=== PATIENT | female | born 1965 | race Caucasian/White ===

== ENCOUNTER → 2017-07-23 | Outpatient (CLI) | payer SELFPAY ==
[2014-03-15 02:25] VITALS: BP 136/80
--- NOTE | 2017-07-23 11:25 | CT ---
HISTORY: Screening. Cardiac calcium scoring Technique: Multiple axial images of the chest were obtained on a [address] from the aortic arch to the base of the heart with retrospective cardiac gating. Noncontrast evaluation of th e heart was performed for calcium scoring with prospective gating. 3D reconstructions and vessel anal ysis were performed on a vital imaging workstation. Dose reduction techniques including Automated Ex posure Control (AEC) and adjustment of mA and kV were utilized. Findings: A total calcium score of 13 is observed. The score results in mild likelihood of coronary events giv en the age and sex matched cohort analysis. Evaluation of the coronary arterial system demonstrates no significant disease of the left main or le ft circumflex. Mild coronary artery disease is seen within the left anterior descending and right co ronary arteries. Extracardiac findings: No pathologically enlarged lymphadenopathy can be observed. The aortic arch is unremarkable in its a ppearance with normal vascular configuration. No significant pericardial effusion can be identified. The visualized portions of the lung parenchyma are unremarkable. No lytic or blastic lesions can b e identified within the visualized bony thorax. The visualized portions of the abdomen demonstrate n ormal perfusion patterns of the spleen and liver. IMPRESSION: Total calcium score 13 resulting in a mild likelihood of coronary artery events. Reported By:
== END ==
LOC: RAD 08:21
PROVIDERS: ATTEND Nurse Practitioner Family
DX: Z13.6 Encounter for screening for cardiovascular disorders (principal)

== ENCOUNTER 2018-02-28 15:25 | Inpatient (IN) ==
[2018-02-28 18:00] LABS: BASOPHILS % (AUTO) 0.5 % (0.2-1.0); EOSINOPHILS % (AUTO) 0.3 % (0.9-2.9); HEMATOCRIT 41.7 % (36.0-47.0); HEMOGLOBIN 14.6 g/dL (12.0-16.0); LYMPHOCYTES # (AUTO) 1.2 X10^3/uL (1.3-2.9); LYMPHOCYTES % (AUTO) 20.1 % (21.0-51.0); MEAN CORPUSCULAR HEMOGLOBIN 32.3 pg (27.0-34.0); MEAN CORPUSCULAR HGB CONC 35.1 g/dL (33.0-35.0); MEAN PLATELET VOLUME 8.3 fL (7.4-11.0); MONOCYTES # (AUTO) 0.6 x10^3/uL (0.3-0.8); MONOCYTES % (AUTO) 10.2 % (0.0-13.0); NEUTROPHILS # (AUTO) 4.3 x10^3/uL (2.2-4.8); NEUTROPHILS % (AUTO) 68.9 % (42.0-75.0); PLATELET COUNT 237 X10^3/uL (150.0-450.0); RED BLOOD COUNT 4.53 X10^6/uL (3.5-5.4); WHITE BLOOD COUNT 6.2 X10^3/uL (3.6-10.0)
[2018-02-28 18:01] LABS: ALANINE AMINOTRANSFERASE 54 Units/L (12-78); ALBUMIN 3.8 g/dL (3.4-5.0); ALKALINE PHOSPHATASE 65 Units/L (46-116); ASPARTATE AMINO TRANSFERASE 68 Units/L (15-37); BLOOD UREA NITROGEN 7 mg/dL (7-18); CARBON DIOXIDE 30.9 mmol/L (21-32); CHLORIDE 95 mmol/L (98-107); COR NA(FOR HYPERGLY) 136 mmol/L (136-145); CREATININE 0.87 mg/dL (0.55-1.02); SODIUM 136 mmol/L (136-145); TOTAL PROTEIN 7.8 g/dL (6.4-8.2); eGFR NON BLACK RACES > 60 (>60)
[2018-02-28] MEDS ORDERED: K-RIDER 10 MEQ/NS 100 ML 10 MEQ/100 ML BAG IV PRN (18:07)
[2018-02-28] MEDS ORDERED: KLOR-CON PO PRN (18:07)
[2018-02-28] MEDS ORDERED: POTASSIUM CHL 60 MEQ/NS 0.45% 500 ML IV PRN (18:07)
[2018-02-28] MEDS ORDERED: POTASSIUM CHLORIDE LIQ 20 MEQ UDC PO PRN (18:07)
[2018-02-28] MEDS ORDERED: MICRO K EXTEN CAP 10 MEQ PO PRN (18:07)
[2018-02-28] MEDS: K-DUR TAB 20 MEQ PO PRN (18:27)
[2018-02-28] MEDS: PROVENTIL NEB TX 0.083% 2.5MG/ 3ML NEB SCH (18:30)
[2018-02-28] MEDS: NS 1000 ML 1,000 ML IV SCH (18:31)
[2018-02-28] MEDS: ROCEPHIN VIAL 1 GRAM IVP SCH (18:57)
[2018-02-28 19:26] VITALS: BMI 48.5
[2018-02-28 19:28] LABS: APPEARANCE,URINE SLIGHTLY HAZY (CLEAR); BILIRUBIN,URINE 1+ (NEGATIVE); BLOOD/HEMOGLOBIN,URINE 2+ (NEGATIVE); COLOR,URINE AMBER (YELLOW); GLUCOSE, URINE NEGATIVE (NEGATIVE); KETONES,URINE 1+ (NEGATIVE); LEUKOCYTE ESTERASE ,URINE 1+ (NEGATIVE); NITRITES,URINE POSITIVE (NEGATIVE); PROTEIN,URINE 2+ (NEGATIVE); UROBILINOGEN,URINE 2+ (NORMAL)
[2018-02-28 19:33] LABS: BACTERIA,URINE 1+ /HPF (NEGATIVE); SQUAMOUS EPITHELIAL CELL,UR MANY /HPF (NEGATIVE)
[2018-02-28] MEDS: TYLENOL 500 MG TAB EXTRA STRENGTH PO PRN (20:07)
[2018-02-28] MEDS: MAGNESIUM SULFATE 1 GRAM/100 mL PREMIX 2 G/200 ML BAG IV SCH ×2 (20:10→21:34)
[2018-02-28] MEDS: ROBITUSSIN DM PO SCH (20:57)
[2018-02-28] MEDS ORDERED: PREVNAR 13 IM ONE (21:00)
[2018-02-28] MEDS ORDERED: FLUVIRIN IM ONE (21:00)
[2018-02-28] MEDS: POTASSIUM CHL 40 MEQ/NS 0.45% 500 ML IV PRN (22:41)
[2018-02-28] MEDS: TUSSIONEX PENNKINETIC SUSP PO PRN (22:58)
[2018-03-01] MEDS: NS 1000 ML 1,000 ML IV SCH ×3 (00:05→17:52)
[2018-03-01] MEDS: PROVENTIL NEB TX 0.083% 2.5MG/ 3ML NEB SCH ×4 (00:59→17:20)
[2018-03-01] MEDS: TYLENOL 500 MG TAB EXTRA STRENGTH PO PRN ×2 (01:43→12:25)
[2018-03-01 05:38] LABS: BASOPHILS % (AUTO) 0.5 % (0.2-1.0); EOSINOPHILS % (AUTO) 0.3 % (0.9-2.9); HEMATOCRIT 37.8 % (36.0-47.0); HEMOGLOBIN 13.2 g/dL (12.0-16.0); LYMPHOCYTES # (AUTO) 1.1 X10^3/uL (1.3-2.9); LYMPHOCYTES % (AUTO) 19.6 % (21.0-51.0); MEAN CORPUSCULAR HGB CONC 34.9 g/dL (33.0-35.0); MEAN CORPUSCULAR VOLUME 91.6 fL (80.0-100.0); MEAN PLATELET VOLUME 8.4 fL (7.4-11.0); MONOCYTES # (AUTO) 0.6 x10^3/uL (0.3-0.8); MONOCYTES % (AUTO) 10.8 % (0.0-13.0); NEUTROPHILS # (AUTO) 3.8 x10^3/uL (2.2-4.8); NEUTROPHILS % (AUTO) 68.8 % (42.0-75.0); PLATELET COUNT 210 X10^3/uL (150.0-450.0); RED BLOOD COUNT 4.12 X10^6/uL (3.5-5.4); RED CELL DISTRIBUTION WIDTH 12.9 % (11.6-16.5); WHITE BLOOD COUNT 5.6 X10^3/uL (3.6-10.0)
[2018-03-01 05:52] LABS: ALANINE AMINOTRANSFERASE 52 Units/L (12-78); ALBUMIN 3.1 g/dL (3.4-5.0); ALKALINE PHOSPHATASE 58 Units/L (46-116); ASPARTATE AMINO TRANSFERASE 63 Units/L (15-37); BLOOD UREA NITROGEN 6 mg/dL (7-18); CALCIUM 7.5 mg/dL (8.5-10.1); CARBON DIOXIDE 30.5 mmol/L (21-32); CHLORIDE 100 mmol/L (98-107); COR CA(FOR HYPOALB) 8.2 mg/dL (8.5-10.1); COR NA(FOR HYPERGLY) 140 mmol/L (136-145); CREATININE 0.75 mg/dL (0.55-1.02); MAGNESIUM 2.1 mg/dL (1.7-2.9); SODIUM 138 mmol/L (136-145); TOTAL PROTEIN 6.7 g/dL (6.4-8.2); eGFR NON BLACK RACES > 60 (>60)
--- NOTE | 2018-03-01 07:35 | DR.H&P ---
H&P - History & Physical for Day of: H&P Date: 02/28/18 - Chief Complaint Chief Complaint: Fever, weakness - History of Present Illness History of Present Illness: The patient is a 52-year-old white female who presents to the [facility] with complaint of fever and weakness. Patient has had bronchitis with history of asthma. Patient has completed a Z-Parvez. Patient states she is still coughing. States that she does have fever. Tem perature in office is noted to be 103 Fahrenheit. Patient does complain of lower abdominal pain. Urine is noted to have a strong foul odor. Patient does complain of feeling weak and not her self. Did go to the [facility] ED on Wednesday and was told potassium was low. No new meds prescribed. Patient is agreeable for hospital admission. - Past Medical History Past Medical History: Depression, Arthritis - Past Surgical History Surgical History: TALENT ACQUISITION COORDINATOR Surgery, Ortho Surgery - Family History Family Medical History: Diabetes Mellitus, Hypertension - Social History Does patient currently use any type of tobacco product: No Have you used tobacco products in the last 12 months: No Type of Tobacco Use: None Does any household member use tobacco: No Alcohol Use: None Drug Use: None - Medications Home Medications: No Known Drug Allergies Allergy (Verified 02/28/18 18:04) - Review of Systems Constitutional: Fever, Weakness, Malaise Eyes: No Symptoms Reported ENT: No Symptoms Reported Respiratory: Cough, Shortness of Breath, Wheezing Cardiovascular: No Symptoms Reported Gastrointestinal: No Symptoms Reported Genitourinary: Dysuria Musculoskeletal: No Symptoms Reported Skin: No Symptoms Reported Neurological: No Symptoms Reported - Physical Exam Vital Signs: Temperature 97.7 F Pulse Rate [Right Brachial] 93 Pulse Rate 95 Respiratory Rate 22 Blood Pressure [Right Arm] 128/60 Blood Pressure [Left Arm] 118/59 Blood Pressure 118/59 O2 Sat by Pulse Oximetry 95 Oriented: Normal Eyes: Normal Ear: Normal Nose: Normal Throat: Normal Respiratory: Clear Throughout Cardiovascular: Normal : Dysuria (URINE WITH STRONG FOUL ODOR) Auscultation: Bowel Sounds: Normal Palpation: Normal Tenderness: Suprapubic Skin: Normal Musculoskeletal: Normal Psychiatric: Normal Mood Description: Calm Affect: Normal Speech Pattern: Clear - Assessment/Plan (1) Fever Status: Acute Plan: TYLENOL PRN, CBC, BLOOD AND URINE CULTURES (2) UTI (urinary tract infection) Narrative Support Text: UTI + IN OFFICE Status: Acute Plan: CBC, CMP, UA, UA C&S, ROCEPHIN (3) Hypokalemia Status: Acute Plan: CMP, SUPPLEMENT NEEDED (4) Bronchitis Status: Acute Plan: ROCEPHIN, NEBS - Allergies Allergies/Adverse Reactions: Allergies Allergy/AdvReac Type Severity Reaction Status Date / Time No Known Drug Allergies Allergy Verified 02/28/18 18:04
[2018-03-01] MEDS: ROCEPHIN VIAL 1 GRAM IVP SCH (08:36)
[2018-03-01] MEDS: ROBITUSSIN DM PO SCH ×4 (08:36→21:11)
[2018-03-01] MEDS ORDERED: FLUVIRIN IM ONE (09:00)
[2018-03-01] MEDS ORDERED: PREVNAR 13 IM ONE (09:00)
[2018-03-01] MEDS: MUCOMYST 20% 200 MG/ML NEB SCH ×2 (09:35→21:45)
[2018-03-01] MEDS: PULMICORT NEB TX 0.5 MG NEB SCH ×2 (09:36→21:45)
--- NOTE | 2018-03-01 11:19 | RAD ---
Exam: Chest two views History: 52-year-old female with fever and shortness of breath. Comparison: Previous chest radiograph from 03/01/2018 Findings: Mild cardiomegaly is seen. Mild vascular prominence may be present as well. Since the previous exam on 02/27/2018, there has been interval development of right perihilar opacity. While this may be related to pulmonary vascular congestion, possibility of perihilar infiltrate cannot be excluded. Remainder the lungs are clear. No significant effusion on either side. Bony thorax is normal. Impression: 1. Cardiomegaly with mild vascular prominence. 2. Interval development of right perihilar opacity which may be related to vascular congestion though possible perihilar infiltrate is another consideration Reported By:
[2018-03-01] MEDS: K-DUR TAB 20 MEQ PO PRN (11:55)
[2018-03-01] MEDS: ZITHROMAX INJ 500 MG VIAL 500 MG in NS 250 ML IV 250 ML IV SCH (11:56)
[2018-03-01] MEDS: SOLU-Medrol 125 MG VIAL IVP SCH ×3 (11:56→21:11)
[2018-03-01] MEDS ORDERED: PNEUMOVAX 23 IM ONE (12:00)
--- NOTE | 2018-03-01 13:37 | PCM.PROG ---
Progress Note - Progress Note for Day of Date of Exam: 03/01/18 - Subjective Subjective: 52 WF DIRECT ADMIT FROM DR SHAHID OFFICE ON 02/28 WITH FAILED OUTPT BRONCHITIS, SOB. PT WAS SEEN IN ER OVER THE WEEKEND AND WAS D/C HOME. PT HAD DIFFUSE WHEEZES AND SOB WITH CHRONIC RESP HISTORY. PT REPORTS SHE HAD BEEN EXPOSED TO STREP THROAT OVER THE PAST WEEK AND HER SON HAD WALKING PNEUMONIA. PT CURRENTLY ON IV ROCEPHIN, ADDING ZITHROMAX TODAY, IV SOLU MEDROL AND MUCOMYST. FLU AND STREP SCREEN. PT REPORTS FEELING VERY WEAK. PT ALSO HAD UTI WITH CO FEVER UP TO 103 PRIOR TO ADMISSION. PT URINE CUTLURE PENDING. - Past Medical Family Social History Past Med/Fam/Surg Hx: No changes since H&P Allergies: Allergies No Known Drug Allergies Allergy (Verified 02/28/18 18:04) - Review of Systems ROS: No change since H&P - Vital Signs and I&O's Vital Signs: Temperature 103.0 F Pulse Rate [Right Brachial] 94 Pulse Rate 95 Respiratory Rate 24 Blood Pressure [Right Arm] 140/70 Blood Pressure [Left Arm] 120/60 Blood Pressure 118/59 O2 Sat by Pulse Oximetry 91 Intake and Output: Intake & Output 02/27/18 02/28/18 03/01/18 03/02/18 11:59 11:59 11:59 11:59 Intake Total 2320 / 2320 Balance 2320 / 2320 - Physical Exam Oriented: Normal Eyes: Normal Ear: Normal Nose: Normal Throat: Normal Respiratory: Diminished, Wheezes, Rhonchi Cardiovascular: Tachycardia : Dysuria (URINE WITH STRONG FOUL ODOR) Auscultation: Bowel Sounds: Normal Tenderness: Suprapubic Skin: Normal Musculoskeletal: Normal Psychiatric: Normal Mood Description: Calm Affect: Normal Speech Pattern: Clear - Laboratory and Diagnostics Result Diagrams: 03/01/18 05:00 03/01/18 05:00 Labs: 03/01/18 10:03 Sputum - Expectorated Sputum - Final 02/28/18 18:38 Urine,Clean Catch Urine Culture - Preliminary Laboratory WBC 5.6 X10^3/uL (3.6-10.0) 03/01/18 05:00 RBC 4.12 X10^6/uL (3.5-5.4) 03/01/18 05:00 Hgb 13.2 g/dL (12.0-16.0) 03/01/18 05:00 Hct 37.8 % (36.0-47.0) 03/01/18 05:00 MCV 91.6 fL (80.0-100.0) 03/01/18 05:00 MCH 32.0 pg (27.0-34.0) 03/01/18 05:00 MCHC 34.9 g/dL (33.0-35.0) 03/01/18 05:00 RDW 12.9 % (11.6-16.5) 03/01/18 05:00 Plt Count 210 X10^3/uL (150.0-450.0) 03/01/18 05:00 MPV 8.4 fL (7.4-11.0) 03/01/18 05:00 Neut % (Auto) 68.8 % (42.0-75.0) 03/01/18 05:00 Lymph % (Auto) 19.6 % (21.0-51.0) L 03/01/18 05:00 [place] % (Auto) 10.8 % (0.0-13.0) 03/01/18 05:00 Eos % (Auto) 0.3 % (0.9-2.9) L 03/01/18 05:00 Baso % (Auto) 0.5 % (0.2-1.0) 03/01/18 05:00 Neut # (Auto) 3.8 x10^3/uL (2.2-4.8) 03/01/18 05:00 Lymph # (Auto) 1.1 X10^3/uL (1.3-2.9) L 03/01/18 05:00 [place] # (Auto) 0.6 x10^3/uL (0.3-0.8) 03/01/18 05:00 Eos # (Auto) 0.0 x10^3/uL (0.0-0.2) 03/01/18 05:00 Baso # (Auto) 0.0 X10^3/uL (0.0-0.1) 03/01/18 05:00 Absolute Nucleated RBC 0.0 /100WBC 03/01/18 05:00 Sodium 138 mmol/L (136-145) 03/01/18 05:00 Corrected Sodium 140 mmol/L (136-145) 03/01/18 05:00 Potassium 3.8 mmol/L (3.5-5.1) 03/01/18 05:00 Chloride 100 mmol/L (98-107) 03/01/18 05:00 Carbon Dioxide 30.5 mmol/L (21-32) 03/01/18 05:00 BUN 6 mg/dL (7-18) L 03/01/18 05:00 Creatinine 0.75 mg/dL (0.55-1.02) 03/01/18 05:00 Est GFR (MDRD) Af Amer > 60 (>60) 03/01/18 05:00 Est GFR (MDRD) Non-Af > 60 (>60) 03/01/18 05:00 Glucose 165 mg/dL (65-99) H 03/01/18 05:00 Calcium 7.5 mg/dL (8.5-10.1) L 03/01/18 05:00 Corrected Calcium 8.2 mg/dL (8.5-10.1) L 03/01/18 05:00 Magnesium 2.1 mg/dL (1.7-2.9) 03/01/18 05:00 Total Bilirubin 0.50 mg/dL (0.2-1.0) 03/01/18 05:00 AST 63 Units/L (15-37) H 03/01/18 05:00 ALT 52 Units/L (12-78) 03/01/18 05:00 Alkaline Phosphatase 58 Units/L (46-116) 03/01/18 05:00 Total Protein 6.7 g/dL (6.4-8.2) 03/01/18 05:00 Albumin 3.1 g/dL (3.4-5.0) L 03/01/18 05:00 Globulin 3.6 g/dL (2.5-4.5) 03/01/18 05:00 Albumin/Globulin Ratio 0.9 Ratio (1.1-2.1) L 03/01/18 05:00 Specimen Type Clean catch urine 02/28/18 18:38 Urine Color [place] (YELLOW) 02/28/18 18:38 Urine Appearance Slightly hazy (CLEAR) 02/28/18 18:38 Urine pH 6.0 (5.0 - 8.0) 02/28/18 18:38 Ur Specific [place] 1.015 (1.000-1.030) 02/28/18 18:38 Urine Protein 2+ (NEGATIVE) 02/28/18 18:38 Urine Glucose (UA) Negative (NEGATIVE) 02/28/18 18:38 Urine Ketones 1+ (NEGATIVE) 02/28/18 18:38 Urine Occult Blood 2+ (NEGATIVE) 02/28/18 18:38 Urine Nitrite Positive (NEGATIVE) 02/28/18 18:38 Urine Bilirubin 1+ (NEGATIVE) 02/28/18 18:38 Urine Urobilinogen 2+ (NORMAL) 02/28/18 18:38 Ur Leukocyte Esterase 1+ (NEGATIVE) 02/28/18 18:38 Urine RBC 5-10 /HPF (NONE SEEN) 02/28/18 18:38 Urine WBC 5-10 /HPF (NONE SEEN) 02/28/18 18:38 Ur Squamous Epith Cells Many /HPF (NEGATIVE) 02/28/18 18:38 Urine Bacteria 1+ /HPF (NEGATIVE) 02/28/18 18:38 Ur Culture Indicated? Yes/culture set up 02/28/18 18:38 Influenza Type A (PCR) Negative (NEGATIVE) 03/01/18 10:03 Influenza Type B (PCR) Negative (NEGATIVE) 03/01/18 10:03 S. pyogenes (TEM-PCR) Not detected (NOT DETECT) 03/01/18 10:03 - Plan (1) Bronchitis Status: Acute Plan: ROCEPHIN, IV ZITHROMAX. CULTURES PENDING, AM LABS. REPEAT CXR THIS AM, ABG AND ADD MUCOMYST AND BUDESONIDE TO NEB TREATMENTS. BP CONTROL, MONITOR I & OS, IVF AT 50CC/HR (2) Fever Status: Acute Plan: TYLENOL PRN, CBC, BLOOD AND URINE CULTURES (3) Hypokalemia Status: Acute Plan: CMP, SUPPLEMENT NEEDED (4) UTI (urinary tract infection) Status: Acute Plan: CBC, CMP, UA, UA C&S, ROCEPHIN
[2018-03-01] MEDS ORDERED: NS 100 ML IV 100 ML IV ONE (13:39)
[2018-03-01 14:34] LABS: ABG BASE EXCESS 3.3 mmol/L (-2.0-2.0); ABG HCO3 27.8 mmol/L (22-26)
[2018-03-01 14:35] LABS: ABG ALLEN TEST POS
--- NOTE | 2018-03-01 16:26 | CT ---
CT CHEST WITH IV CONTRAST HISTORY: Shortness of breath and fever Comparison: Chest radiography 03/01/2018 Technique: Multiple axial images of the chest were obtained from the thoracic inlet to the upper abdomen after the administration of IV contrast.Dose reduction techniques including Automated Exposure Control (AEC) and adjustment of mA and kV were utlized. Findings: The heart is normal in size. No pericardial effusion. No suspicious mediastinal or axillary lymph nodes. Although not optimized to detect pulmonary embolism, no large central pulmonary emboli are seen. Inflammatory appearing nodularity involving the bilateral lung bases with focal regions of air bronchograms. Right suprahilar consolidation is also present with some surrounding ground-glass as well as nodularity in the dependent portion of the right upper lobe. Limited images of the upper abdomen are unremarkable. No aggressive osseous lesions. IMPRESSION: 1. Findings most suggestive of multifocal infection, would consider aspiration as a source. 2. Consolidative regions surrounding the right suprahilar area is somewhat more atypical and would recommend follow-up CT IF THIS IS NOT CLEAR ON RADIOGRAPHY after approximately 2 months Reported By:
[2018-03-01] MEDS: TUSSIONEX PENNKINETIC SUSP PO PRN (19:26)
[2018-03-02] MEDS: NS 1000 ML 1,000 ML IV SCH ×3 (00:01→17:09)
[2018-03-02] MEDS: PROVENTIL NEB TX 0.083% 2.5MG/ 3ML NEB SCH ×4 (01:05→18:04)
[2018-03-02 05:40] LABS: BASOPHILS % (AUTO) 0.2 % (0.2-1.0); EOSINOPHILS % (AUTO) 0.1 % (0.9-2.9); HEMATOCRIT 37.9 % (36.0-47.0); HEMOGLOBIN 13.2 g/dL (12.0-16.0); LYMPHOCYTES % (AUTO) 22.9 % (21.0-51.0); MEAN CORPUSCULAR HEMOGLOBIN 32.5 pg (27.0-34.0); MEAN CORPUSCULAR HGB CONC 34.9 g/dL (33.0-35.0); MEAN CORPUSCULAR VOLUME 92.9 fL (80.0-100.0); MEAN PLATELET VOLUME 8.3 fL (7.4-11.0); MONOCYTES # (AUTO) 0.2 x10^3/uL (0.3-0.8); MONOCYTES % (AUTO) 5.3 % (0.0-13.0); NEUTROPHILS % (AUTO) 71.5 % (42.0-75.0); PLATELET COUNT 225 X10^3/uL (150.0-450.0); RED BLOOD COUNT 4.08 X10^6/uL (3.5-5.4); WHITE BLOOD COUNT 4.2 X10^3/uL (3.6-10.0)
[2018-03-02 05:43] LABS: ALANINE AMINOTRANSFERASE 50 Units/L (12-78); ALKALINE PHOSPHATASE 59 Units/L (46-116); ASPARTATE AMINO TRANSFERASE 40 Units/L (15-37); BLOOD UREA NITROGEN 5 mg/dL (7-18); CALCIUM 7.9 mg/dL (8.5-10.1); CARBON DIOXIDE 25.5 mmol/L (21-32); CHLORIDE 104 mmol/L (98-107); COR CA(FOR HYPOALB) 8.7 mg/dL (8.5-10.1); COR NA(FOR HYPERGLY) 142 mmol/L (136-145); CREATININE 0.58 mg/dL (0.55-1.02); SODIUM 140 mmol/L (136-145); TOTAL PROTEIN 6.9 g/dL (6.4-8.2); eGFR NON BLACK RACES > 60 (>60)
[2018-03-02] MEDS: POTASSIUM CHL 40 MEQ/NS 0.45% 500 ML IV PRN (06:03)
[2018-03-02] MEDS: ZITHROMAX INJ 500 MG VIAL 500 MG in NS 250 ML IV 250 ML IV SCH (08:47)
[2018-03-02] MEDS: ROBITUSSIN DM PO SCH ×4 (08:48→20:00)
[2018-03-02] MEDS: TUSSIONEX PENNKINETIC SUSP PO PRN (08:48)
[2018-03-02] MEDS: ROCEPHIN VIAL 1 GRAM IVP SCH (08:48)
[2018-03-02] MEDS: MUCOMYST 20% 200 MG/ML NEB SCH ×2 (09:44→21:00)
[2018-03-02] MEDS: PULMICORT NEB TX 0.5 MG NEB SCH ×2 (09:44→21:00)
--- NOTE | 2018-03-02 13:19 | PCM.PROG ---
Progress Note - Progress Note for Day of Date of Exam: 03/02/18 - Subjective Subjective: 52 WF DIRECT ADMIT FROM DR SHAHID OFFICE ON 02/28 WITH FAILED OUTPT BRONCHITIS, SOB. PT WAS SEEN IN ER OVER THE WEEKEND AND WAS D/C HOME. PT HAD DIFFUSE WHEEZES AND SOB WITH CHRONIC RESP HISTORY. PT REPORTS SHE HAD BEEN EXPOSED TO STREP THROAT OVER THE PAST WEEK AND HER SON HAD WALKING PNEUMONIA. PT CURRENTLY ON IV ROCEPHIN, ZITHROMAX AND IV SOLU MEDROL AND MUCOMYST. FLU AND STREP SCREEN NEGATIVE. PT REPORTS FEELING "A LITTLE BETTER" THIS AM. PT CONTINUES WITH DIFFUSE EXP WHEEZES. ABG WITH PO2 58.0, WILL REPEAT Q AM. PT POTASSIUM 3.[address] CHEST Findings most suggestive of multifocal infection, would consider aspiration. as a source. Consolidative regions surrounding the right suprahilar area is somewhat more. atypical and would recommend follow-up, REVIEWED RESULTS WITH PT - Past Medical Family Social History Past Med/Fam/Surg Hx: No changes since H&P Allergies: Allergies No Known Drug Allergies Allergy (Verified 02/28/18 18:04) - Review of Systems ROS: No change since H&P - Vital Signs and I&O's Vital Signs: Temperature 97.9 F Pulse Rate [Right Brachial] 100 Pulse Rate 102 Respiratory Rate 20 Blood Pressure [Right Arm] 143/65 Blood Pressure [Left Arm] 120/60 Blood Pressure 118/59 O2 Sat by Pulse Oximetry 96 Intake and Output: Intake & Output 02/28/18 03/01/18 03/02/18 03/03/18 11:59 11:59 11:59 11:59 Intake Total 2320 / 2320 3610 / 3610 Balance 2320 / 2320 3610 / 3610 - Physical Exam Oriented: Normal Eyes: Normal Ear: Normal Nose: Normal Throat: Normal Respiratory: Diminished, Wheezes, Rhonchi Cardiovascular: Tachycardia : Dysuria (URINE WITH STRONG FOUL ODOR) Auscultation: Bowel Sounds: Normal Tenderness: Suprapubic Skin: Normal Musculoskeletal: Normal Psychiatric: Normal Mood Description: Calm Affect: Normal Speech Pattern: Clear, Appropriate - Laboratory and Diagnostics Result Diagrams: 03/02/18 05:10 03/02/18 05:10 Labs: 02/28/18 17:31 Blood Blood Culture - Preliminary 02/28/18 17:22 Blood Blood Culture - Preliminary 03/01/18 10:03 Sputum - Expectorated Sputum Sputum Culture - Preliminary 03/01/18 10:03 Sputum - Expectorated Sputum - Final 02/28/18 18:38 Urine,Clean Catch Urine Culture - Preliminary Laboratory WBC 4.2 X10^3/uL (3.6-10.0) 03/02/18 05:10 RBC 4.08 X10^6/uL (3.5-5.4) 03/02/18 05:10 Hgb 13.2 g/dL (12.0-16.0) 03/02/18 05:10 Hct 37.9 % (36.0-47.0) 03/02/18 05:10 MCV 92.9 fL (80.0-100.0) 03/02/18 05:10 MCH 32.5 pg (27.0-34.0) 03/02/18 05:10 MCHC 34.9 g/dL (33.0-35.0) 03/02/18 05:10 RDW 13.0 % (11.6-16.5) 03/02/18 05:10 Plt Count 225 X10^3/uL (150.0-450.0) 03/02/18 05:10 MPV 8.3 fL (7.4-11.0) 03/02/18 05:10 Neut % (Auto) 71.5 % (42.0-75.0) 03/02/18 05:10 Lymph % (Auto) 22.9 % (21.0-51.0) 03/02/18 05:10 [place] % (Auto) 5.3 % (0.0-13.0) 03/02/18 05:10 Eos % (Auto) 0.1 % (0.9-2.9) L 03/02/18 05:10 Baso % (Auto) 0.2 % (0.2-1.0) 03/02/18 05:10 Neut # (Auto) 3.0 x10^3/uL (2.2-4.8) 03/02/18 05:10 Lymph # (Auto) 1.0 X10^3/uL (1.3-2.9) L 03/02/18 05:10 [place] # (Auto) 0.2 x10^3/uL (0.3-0.8) L 03/02/18 05:10 Eos # (Auto) 0.0 x10^3/uL (0.0-0.2) 03/02/18 05:10 Baso # (Auto) 0.0 X10^3/uL (0.0-0.1) 03/02/18 05:10 Absolute Nucleated RBC 0.1 /100WBC 03/02/18 05:10 Sample Site Rr 03/01/18 14:19 ABG pH 7.440 (7.35-7.45) 03/01/18 14:19 ABG pCO2 41.0 mmHg (35.0-45.0) 03/01/18 14:19 ABG pO2 58.0 mmHg (80.0-100.0) L 03/01/18 14:19 ABG HCO3 27.8 mmol/L (22-26) H 03/01/18 14:19 ABG O2 Saturation 91.0 % (90-100) 03/01/18 14:19 ABG Base Excess 3.3 mmol/L (-2.0-2.0) H 03/01/18 14:19 [place] Test Pos 03/01/18 14:19 A-a Gradient 40.0 mmHg 03/01/18 14:19 FiO2 21.0 03/01/18 14:19 Blood Gas Comments Marc well el 03/01/18 14:19 Sodium 140 mmol/L (136-145) 03/02/18 05:10 Corrected Sodium 142 mmol/L (136-145) 03/02/18 05:10 Potassium 3.3 mmol/L (3.5-5.1) L 03/02/18 05:10 Chloride 104 mmol/L (98-107) 03/02/18 05:10 Carbon Dioxide 25.5 mmol/L (21-32) 03/02/18 05:10 BUN 5 mg/dL (7-18) L 03/02/18 05:10 Creatinine 0.58 mg/dL (0.55-1.02) 03/02/18 05:10 Est GFR (MDRD) Af Amer > 60 (>60) 03/02/18 05:10 Est GFR (MDRD) Non-Af > 60 (>60) 03/02/18 05:10 Glucose 184 mg/dL (65-99) H 03/02/18 05:10 Calcium 7.9 mg/dL (8.5-10.1) L 03/02/18 05:10 Corrected Calcium 8.7 mg/dL (8.5-10.1) 03/02/18 05:10 Magnesium 2.1 mg/dL (1.7-2.9) 03/01/18 05:00 Total Bilirubin 0.30 mg/dL (0.2-1.0) 03/02/18 05:10 AST 40 Units/L (15-37) H 03/02/18 05:10 ALT 50 Units/L (12-78) 03/02/18 05:10 Alkaline Phosphatase 59 Units/L (46-116) 03/02/18 05:10 Total Protein 6.9 g/dL (6.4-8.2) 03/02/18 05:10 Albumin 3.0 g/dL (3.4-5.0) L 03/02/18 05:10 Globulin 3.9 g/dL (2.5-4.5) 03/02/18 05:10 Albumin/Globulin Ratio 0.8 Ratio (1.1-2.1) L 03/02/18 05:10 Specimen Type Clean catch urine 02/28/18 18:38 Urine Color [place] (YELLOW) 02/28/18 18:38 Urine Appearance Slightly hazy (CLEAR) 02/28/18 18:38 Urine pH 6.0 (5.0 - 8.0) 02/28/18 18:38 Ur Specific [place] 1.015 (1.000-1.030) 02/28/18 18:38 Urine Protein 2+ (NEGATIVE) 02/28/18 18:38 Urine Glucose (UA) Negative (NEGATIVE) 02/28/18 18:38 Urine Ketones 1+ (NEGATIVE) 02/28/18 18:38 Urine Occult Blood 2+ (NEGATIVE) 02/28/18 18:38 Urine Nitrite Positive (NEGATIVE) 02/28/18 18:38 Urine Bilirubin 1+ (NEGATIVE) 02/28/18 18:38 Urine Urobilinogen 2+ (NORMAL) 02/28/18 18:38 Ur Leukocyte Esterase 1+ (NEGATIVE) 02/28/18 18:38 Urine RBC 5-10 /HPF (NONE SEEN) 02/28/18 18:38 Urine WBC 5-10 /HPF (NONE SEEN) 02/28/18 18:38 Ur Squamous Epith Cells Many /HPF (NEGATIVE) 02/28/18 18:38 Urine Bacteria 1+ /HPF (NEGATIVE) 02/28/18 18:38 Ur Culture Indicated? Yes/culture set up 02/28/18 18:38 Influenza Type A (PCR) Negative (NEGATIVE) 03/01/18 10:03 Influenza Type B (PCR) Negative (NEGATIVE) 03/01/18 10:03 S. pyogenes (TEM-PCR) Not detected (NOT DETECT) 03/01/18 10:03 - Plan (1) Bronchitis Status: Acute Plan: ROCEPHIN, IV ZITHROMAX. CULTURES PENDING, AM LABS. REPEAT CXR THIS AM, REPEAT AM ABG CONTINUE MUCOMYST AND BUDESONIDE TO NEB TREATMENTS. BP CONTROL, MONITOR I & OS, IVF AT 50CC/HR (2) Fever Status: Acute Plan: TYLENOL PRN, CBC, BLOOD AND URINE CULTURES (3) Hypokalemia Status: Acute Plan: CMP, SUPPLEMENT NEEDED (4) UTI (urinary tract infection) Status: Acute Plan: CBC, CMP, UA, UA C&S, ROCEPHIN
[2018-03-02] MEDS: PEPCID 20 MG IV PREMIX* 20 MG/50 ML BAG IV SCH (20:00)
[2018-03-02] MEDS: K-DUR TAB 20 MEQ PO PRN (20:00)
[2018-03-03] MEDS: TUSSIONEX PENNKINETIC SUSP PO PRN (04:06)
[2018-03-03 05:10] LABS: BASOPHILS % (AUTO) 0.3 % (0.2-1.0); EOSINOPHILS % (AUTO) 0.2 % (0.9-2.9); HEMATOCRIT 35.8 % (36.0-47.0); HEMOGLOBIN 12.3 g/dL (12.0-16.0); LYMPHOCYTES # (AUTO) 2.3 X10^3/uL (1.3-2.9); LYMPHOCYTES % (AUTO) 31.2 % (21.0-51.0); MEAN CORPUSCULAR HEMOGLOBIN 32.1 pg (27.0-34.0); MEAN CORPUSCULAR HGB CONC 34.5 g/dL (33.0-35.0); MEAN CORPUSCULAR VOLUME 93.1 fL (80.0-100.0); MEAN PLATELET VOLUME 8.1 fL (7.4-11.0); MONOCYTES # (AUTO) 0.6 x10^3/uL (0.3-0.8); MONOCYTES % (AUTO) 8.3 % (0.0-13.0); NEUTROPHILS # (AUTO) 4.5 x10^3/uL (2.2-4.8); PLATELET COUNT 260 X10^3/uL (150.0-450.0); RED BLOOD COUNT 3.84 X10^6/uL (3.5-5.4); RED CELL DISTRIBUTION WIDTH 13.4 % (11.6-16.5); WHITE BLOOD COUNT 7.4 X10^3/uL (3.6-10.0)
[2018-03-03 05:27] LABS: ALANINE AMINOTRANSFERASE 50 Units/L (12-78); ALBUMIN 2.9 g/dL (3.4-5.0); ALKALINE PHOSPHATASE 54 Units/L (46-116); ASPARTATE AMINO TRANSFERASE 35 Units/L (15-37); BLOOD UREA NITROGEN 9 mg/dL (7-18); CALCIUM 7.9 mg/dL (8.5-10.1); CARBON DIOXIDE 29.4 mmol/L (21-32); CHLORIDE 108 mmol/L (98-107); COR CA(FOR HYPOALB) 8.8 mg/dL (8.5-10.1); COR NA(FOR HYPERGLY) 146 mmol/L (136-145); CREATININE 0.79 mg/dL (0.55-1.02); SODIUM 146 mmol/L (136-145); TOTAL PROTEIN 6.4 g/dL (6.4-8.2); eGFR NON BLACK RACES > 60 (>60)
[2018-03-03] MEDS: PROVENTIL NEB TX 0.083% 2.5MG/ 3ML NEB SCH ×4 (05:35→17:10)
[2018-03-03 05:42] LABS: ABG BASE EXCESS 3.1 mmol/L (-2.0-2.0); ABG HCO3 28.5 mmol/L (22-26)
[2018-03-03] MEDS: NS 1000 ML 1,000 ML IV SCH ×2 (05:43→17:30)
[2018-03-03] MEDS: ROCEPHIN VIAL 1 GRAM IVP SCH (09:07)
[2018-03-03] MEDS: PEPCID 20 MG IV PREMIX* 20 MG/50 ML BAG IV SCH ×2 (09:07→20:54)
[2018-03-03] MEDS: ROBITUSSIN DM PO SCH ×4 (09:07→20:54)
[2018-03-03] MEDS: ZITHROMAX INJ 500 MG VIAL 500 MG in NS 250 ML IV 250 ML IV SCH (09:47)
[2018-03-03] MEDS: MUCOMYST 20% 200 MG/ML NEB SCH ×2 (11:47→21:25)
[2018-03-03] MEDS: PULMICORT NEB TX 0.5 MG NEB SCH ×2 (11:48→21:25)
--- NOTE | 2018-03-03 12:45 | RAD ---
HISTORY: Multifocal infection Study: Two-view chest Comparison: 03/01/2018 Findings: The trachea is midline. The cardiac silhouette is unremarkable. Persistent airspace passive the right midlung zone right hilar region. Scattered airspace opacity within the left infrahilar region is again noted and essentially stable.. The bony thorax is unremarkable. IMPRESSION: Stable right hilar and left infrahilar infiltrates consistent with multifocal pneumonia. Reported By:
[2018-03-04] MEDS: PROVENTIL NEB TX 0.083% 2.5MG/ 3ML NEB SCH ×3 (00:59→12:08)
[2018-03-04] MEDS: NS 1000 ML 1,000 ML IV SCH ×3 (02:20→10:06)
[2018-03-04 05:47] LABS: BASOPHILS # (AUTO) 0.1 X10^3/uL (0.0-0.1); BASOPHILS % (AUTO) 0.8 % (0.2-1.0); EOSINOPHILS # (AUTO) 0.1 x10^3/uL (0.0-0.2); EOSINOPHILS % (AUTO) 1.5 % (0.9-2.9); HEMATOCRIT 34.9 % (36.0-47.0); LYMPHOCYTES # (AUTO) 2.6 X10^3/uL (1.3-2.9); LYMPHOCYTES % (AUTO) 39.5 % (21.0-51.0); MEAN CORPUSCULAR HEMOGLOBIN 32.3 pg (27.0-34.0); MEAN CORPUSCULAR HGB CONC 34.5 g/dL (33.0-35.0); MEAN CORPUSCULAR VOLUME 93.7 fL (80.0-100.0); MEAN PLATELET VOLUME 8.3 fL (7.4-11.0); MONOCYTES # (AUTO) 0.6 x10^3/uL (0.3-0.8); MONOCYTES % (AUTO) 9.1 % (0.0-13.0); NEUTROPHILS # (AUTO) 3.3 x10^3/uL (2.2-4.8); NEUTROPHILS % (AUTO) 49.1 % (42.0-75.0); PLATELET COUNT 272 X10^3/uL (150.0-450.0); RED BLOOD COUNT 3.73 X10^6/uL (3.5-5.4); RED CELL DISTRIBUTION WIDTH 13.4 % (11.6-16.5); WHITE BLOOD COUNT 6.6 X10^3/uL (3.6-10.0)
[2018-03-04 06:00] LABS: ALANINE AMINOTRANSFERASE 48 Units/L (12-78); ALBUMIN 2.9 g/dL (3.4-5.0); ALKALINE PHOSPHATASE 55 Units/L (46-116); ASPARTATE AMINO TRANSFERASE 29 Units/L (15-37); BLOOD UREA NITROGEN 9 mg/dL (7-18); CALCIUM 7.6 mg/dL (8.5-10.1); CARBON DIOXIDE 28.3 mmol/L (21-32); CHLORIDE 106 mmol/L (98-107); COR CA(FOR HYPOALB) 8.5 mg/dL (8.5-10.1); CREATININE 0.75 mg/dL (0.55-1.02); SODIUM 142 mmol/L (136-145); TOTAL PROTEIN 6.2 g/dL (6.4-8.2); eGFR NON BLACK RACES > 60 (>60)
[2018-03-04] MEDS: ZITHROMAX INJ 500 MG VIAL 500 MG in NS 250 ML IV 250 ML IV SCH (08:49)
[2018-03-04] MEDS: PEPCID 20 MG IV PREMIX* 20 MG/50 ML BAG IV SCH (08:49)
[2018-03-04] MEDS: K-DUR TAB 20 MEQ PO PRN (08:49)
[2018-03-04] MEDS: ROCEPHIN VIAL 1 GRAM IVP SCH (08:49)
[2018-03-04] MEDS: ROBITUSSIN DM PO SCH (08:49)
[2018-03-04 12:03] VITALS: BP 103/54
[2018-03-04] MEDS: PULMICORT NEB TX 0.5 MG NEB SCH (12:08)
== END 2018-03-04 13:20 | disposition home or self-care (01) | DRG 194 ==
LOC: MED/SURG → OBSVTOIN 17:03
PROVIDERS: ADMIT Internal Medicine; ATTEND Internal Medicine
DX: R00.0 Tachycardia, unspecified; R06.02 Shortness of breath; Z23 Encounter for immunization; R10.84 Generalized abdominal pain; F32.89 Other specified depressive episodes; E87.6 Hypokalemia; R53.1 Weakness; J20.8 Acute bronchitis due to other specified organisms; J16.8 Pneumonia due to other specified infectious organisms; J45.998 Other asthma; R50.9 Fever, unspecified; N39.0 Urinary tract infection, site not specified
CPT/HCPCS: 36415; 36600; 71020; 71046; 71260; 80053; 81001; 82803; 83735; 84132; 85025; 87040; 87070; 87086; 87088; 87186; 87205; 87502; 87651; 90686; 94640; 94669; A4216; A4222; S0028; J0456; J0696; J2930; J3475; J3480; J7030; J7050; J7613; J7626; S0195